=== PATIENT | male | born 1995 | race Caucasian/White ===

== ENCOUNTER 2017-12-29 14:27 | Emergency (ER) | payer OTHER | END 2017-12-29 17:13 | disposition home or self-care (01) | LOC: M ED 14:27 | DX: S33.5XXA Sprain of ligaments of lumbar spine, initial encounter (principal); R51 Headache; E11.9 Type 2 diabetes mellitus without complications; V49.40XA Driver injured in collision with unspecified motor vehicles in traffic accident, initial encounter; Y92.410 Unspecified street and highway as the place of occurrence of the external cause | CPT/HCPCS: 99283 ==

== ENCOUNTER 2018-01-26 08:18 | Inpatient (IN) | payer OTHER ==
[2018-01-26] MEDS: NS 1,000 ML IV ×5 (08:30→14:46)
[2018-01-26 08:50] LABS: ABG BASE EXCESS -27.1 (-2.0-2.0); ABG HCO3 2.1 MEQ/L (22.0-26.0); ABG O2 SATURATION 99.3 % (95.0-99.0); ABG PARTIAL PRESSURE O2 183.9 mmHg (75.0-100.0); ABG STANDARD HCO3 7.2 MEQ/L (22.0-26.0); ABG TOTAL CO2 2.4 MEQ/L (22.0-29.0)
[2018-01-26 08:55] LABS: ABG PARTIAL PRESSURE CO2 8.9 mmHg (35.0-45.0); ABG pH (ARTERIAL) 6.996 UNITS (7.350-7.450)
[2018-01-26 09:07] LABS: HEMATOCRIT 53.4 % (42.0-52.0); HEMOGLOBIN 17.2 g/dl (13.5-17.5); MEAN CORPUSCULAR HEMOGLOBIN 28.5 pg (27.0-33.0); MEAN CORPUSCULAR HGB CONC 32.2 g/dl (32.0-36.5); MEAN CORPUSCULAR VOLUME 88.6 fl (80.0-96.0); PLATELET COUNT, AUTOMATED 474 10^3/uL (150-450); RED BLOOD COUNT 6.03 10^6/uL (4.30-6.10); RED CELL DISTRIBUTION WIDTH 12.2 % (11.5-14.5); WHITE BLOOD COUNT 28.9 10^3/uL (4.0-10.0)
[2018-01-26 09:10] LABS: ADD MANUAL DIFFER YES; DIFF SLIDE NUMBER 136; POS COUNT POS FLAG; POSITIVE MORPH POS FLAG
[2018-01-26] MEDS: INSULIN HUMAN REGULAR 100 UNITS in NS 99 ML IV ×3 (09:15→21:00)
[2018-01-26] MEDS: HumuLIN R (REGULAR) INSULIN (NovoLIN R) **100U/ML** PER UNIT IV (09:15)
[2018-01-26 09:29] LABS: OSMOLALITY SERUM 335 MOSM/KG (275-295)
[2018-01-26] MEDS: PIPERACILLIN/TAZOBACTAM SOD 4.5 GM in D5W MINI-BAG PLUS 50 ML IV (09:33)
[2018-01-26 09:36] LABS: INR 1.16
[2018-01-26 09:37] LABS: PARTIAL THROMBOPLASTIN TIME 26.3 SECONDS (25.4-37.6)
[2018-01-26 09:38] LABS: ATYPICAL LYMPH 11 % (0-5); BANDS 17 % (< 11); LYMPHOCYTES 1 % (16-52); METAMYELOCYTES 3 % (0-0); MONOCYTES 5 % (0-8); NEUTROPHILS 63 % (35-75); PLATELET ESTIMATE INCREASED (NORMAL)
[2018-01-26 09:42] LABS: BEDSIDE GLUCOSE 433 MG/DL (70-105)
[2018-01-26 09:42] LABS: KETONE, URINE AUTO RFX 2+ mg/dL (NEGATIVE); LEUKOCYTE ESTERASE UR AUTO RFX NEGATIVE (NEGATIVE); MUCUS, URINE RFX SMALL (NEGATIVE); NITRITE, URINE AUTO RFX NEGATIVE (NEGATIVE); RBC, URINE AUTO RFX 1 /HPF (0-3); SPECIFIC GRAVITY UR AUTO RFX 1.022 (1.002-1.035); SQUAM EPITHELIAL CELL UR AURFX 0 /HPF (0-6); WBC, URINE AUTO RFX 2 /HPF (0-3)
[2018-01-26 09:54] LABS: ESTIMATED AVERAGE GLUCOSE 266 MG/DL (60-110); HEMOGLOBIN A1c 10.9 %
[2018-01-26 09:55] LABS: ACETONE/KETONE > 46.00 MG/DL (<2.81); ALBUMIN 5.1 GM/DL (3.2-5.2); ALBUMIN/GLOBULIN RATIO 1.06 (1.00-1.93); ALKALINE PHOSPHATASE 166 U/L (45-117); ALT/SGPT 14 U/L (12-78); ANION GAP 28 MEQ/L (8-16); AST/SGOT 8 U/L (7-37); BILIRUBIN,DIRECT 0.2 MG/DL (0.0-0.2); BILIRUBIN,TOTAL 0.8 MG/DL (0.2-1.0); BLOOD UREA NITROGEN 14 MG/DL (7-18); CALCIUM LEVEL 10.7 MG/DL (8.5-10.1); CARBON DIOXIDE LEVEL 6 MEQ/L (21-32); CHLORIDE LEVEL 98 MEQ/L (98-107); CK-MB VALUE MASS < 1.0 NG/ML (<3.6); CPK CREATINE PHOSPHOKINASE 47 U/L (39-308); GLOMERULAR FILTRATION RATE 49.6 (>60); LIPASE 56 U/L (73-393); MAGNESIUM LEVEL 2.6 MG/DL (1.8-2.4); MB/CK RELATIVE INDEX 2.13 (< OR =4); PHOSPHORUS LEVEL 6.9 MG/DL (2.5-4.9); POTASSIUM SERUM 5.5 MEQ/L (3.5-5.1); SODIUM LEVEL 132 MEQ/L (136-145); TOTAL PROTEIN 9.9 GM/DL (6.4-8.2); TROPONIN I < 0.02 NG/ML (< 0.10)
[2018-01-26 09:58] LABS: LACTIC ACID SEPSIS PROTOCOL 5.7 MMOL/L (0.4-2.0)
[2018-01-26 10:48] LABS: BEDSIDE GLUCOSE 337 MG/DL (70-105)
[2018-01-26 10:58] LABS: AMYLASE 19 U/L (25-115)
[2018-01-26 11:31] LABS: GLUCOSE, FASTING 501 MG/DL (70-100)
[2018-01-26 11:55] LABS: BEDSIDE GLUCOSE 290 MG/DL (70-105)
[2018-01-26 12:27] LABS: BEDSIDE GLUCOSE 281 MG/DL (70-105)
[2018-01-26] MEDS: D5W/0.9% SODIUM CHLORIDE 1,000 ML IV ×3 (12:42→17:39)
[2018-01-26 13:25] LABS: ANION GAP 19 MEQ/L (8-16); BLOOD UREA NITROGEN 11 MG/DL (7-18); CALCIUM LEVEL 9.1 MG/DL (8.5-10.1); CARBON DIOXIDE LEVEL 5 MEQ/L (21-32); CHLORIDE LEVEL 112 MEQ/L (98-107); CREATININE FOR GFR 1.34 MG/DL (0.70-1.30); GLOMERULAR FILTRATION RATE > 60.0 (>60); GLUCOSE, FASTING 223 MG/DL (70-100); MAGNESIUM LEVEL 2.4 MG/DL (1.8-2.4); POTASSIUM SERUM 5.4 MEQ/L (3.5-5.1); SODIUM LEVEL 136 MEQ/L (136-145)
[2018-01-26 14:02] LABS: BEDSIDE GLUCOSE 228 MG/DL (70-105)
[2018-01-26] MEDS: INSULIN IV RATE CHANGE DOCUMENTATION ML/HR XX ×2 (14:22→19:55)
[2018-01-26 15:04] LABS: BEDSIDE GLUCOSE 219 MG/DL (70-105)
[2018-01-26] MEDS: ENOXAPARIN 40 MG/0.4 ML SYRINGE (J1650) SC (15:04)
[2018-01-26] MEDS: PANTOPRAZOLE 40MG INJ (PROTONIX) (C9113) IV (15:04)
[2018-01-26] MEDS: cefTRIAXone SOD 1 GM in D5W MINI-BAG PLUS 50 ML IV (15:04)
[2018-01-26 16:11] LABS: BEDSIDE GLUCOSE 221 MG/DL (70-105)
[2018-01-26 16:47] LABS: ANION GAP 17 MEQ/L (8-16); BLOOD UREA NITROGEN 8 MG/DL (7-18); CALCIUM LEVEL 9.1 MG/DL (8.5-10.1); CARBON DIOXIDE LEVEL 10 MEQ/L (21-32); CHLORIDE LEVEL 111 MEQ/L (98-107); CREATININE FOR GFR 1.22 MG/DL (0.70-1.30); GLOMERULAR FILTRATION RATE > 60.0 (>60); GLUCOSE, FASTING 220 MG/DL (70-100); POTASSIUM SERUM 5.1 MEQ/L (3.5-5.1); SODIUM LEVEL 138 MEQ/L (136-145)
[2018-01-26 17:03] LABS: BEDSIDE GLUCOSE 248 MG/DL (70-105)
[2018-01-26 17:59] LABS: BEDSIDE GLUCOSE 270 MG/DL (70-105)
[2018-01-26 19:53] LABS: BEDSIDE GLUCOSE 308 MG/DL (70-105)
[2018-01-26 20:35] LABS: ANION GAP 13 MEQ/L (8-16); BLOOD UREA NITROGEN 6 MG/DL (7-18); CALCIUM LEVEL 8.8 MG/DL (8.5-10.1); CARBON DIOXIDE LEVEL 11 MEQ/L (21-32); CHLORIDE LEVEL 112 MEQ/L (98-107); CREATININE FOR GFR 1.09 MG/DL (0.70-1.30); GLOMERULAR FILTRATION RATE > 60.0 (>60); GLUCOSE, FASTING 322 MG/DL (70-100); POTASSIUM SERUM 3.7 MEQ/L (3.5-5.1); SODIUM LEVEL 136 MEQ/L (136-145)
[2018-01-26] MEDS: LEVEMIR (INSULIN DETEMIR) 1 UNITS/0.01ML SC (20:57)
[2018-01-26] MEDS: HumaLOG INSULIN (NovoLOG) PER UNIT SC (21:00)
[2018-01-26 21:03] LABS: BEDSIDE GLUCOSE 318 MG/DL (70-105)
[2018-01-26] MEDS: KCL 10MEQ/100ML SWI (KRUN) 10 MEQ in APPROPRIATE DILUENT 1 EA IV ×2 (21:46→23:01)
[2018-01-26 21:58] LABS: BEDSIDE GLUCOSE 311 MG/DL (70-105)
[2018-01-26] MEDS: KCL 40MEQ IN D5/0.45NS 1000ML 1,000 ML IV (22:17)
[2018-01-26 23:09] LABS: BEDSIDE GLUCOSE 252 MG/DL (70-105)
[2018-01-26] MEDS ORDERED: DEXTROSE 50% 50 ML SYRINGE IV (23:15)
[2018-01-26] MEDS ORDERED: GLUCOSE 4 GM CHEW TABLET PO (23:15)
[2018-01-26] MEDS ORDERED: GLUCAGON FOR INJ 1 MG VIAL (J1610) SC (23:15)
[2018-01-27] MEDS: KCL 10MEQ/100ML SWI (KRUN) 10 MEQ in APPROPRIATE DILUENT 1 EA IV ×3 (00:58→01:57)
[2018-01-27 01:17] LABS: ANION GAP 12 MEQ/L (8-16); BLOOD UREA NITROGEN 4 MG/DL (7-18); CALCIUM LEVEL 8.7 MG/DL (8.5-10.1); CARBON DIOXIDE LEVEL 14 MEQ/L (21-32); CHLORIDE LEVEL 110 MEQ/L (98-107); CREATININE FOR GFR 0.94 MG/DL (0.70-1.30); GLOMERULAR FILTRATION RATE > 60.0 (>60); GLUCOSE, FASTING 263 MG/DL (70-100); SODIUM LEVEL 136 MEQ/L (136-145)
[2018-01-27] MEDS: KCL 40MEQ IN D5/0.45NS 1000ML 1,000 ML IV ×3 (03:18→16:32)
[2018-01-27 04:51] LABS: BASO % 0.1 % (0.0-1.0); EOS # 0.1 10^3/uL (0.0-0.50); EOS % 0.3 % (0.0-3.0); HEMATOCRIT 38.6 % (42.0-52.0); IMMATURE GRANULOCYTE % 0.8 % (0-3.0); LYMPH # 1.4 10^3/uL (1.5-6.5); LYMPH % 9.7 % (24.0-44.0); MEAN CORPUSCULAR HEMOGLOBIN 28.3 pg (27.0-33.0); MEAN CORPUSCULAR HGB CONC 34.7 g/dl (32.0-36.5); MEAN CORPUSCULAR VOLUME 81.6 fl (80.0-96.0); MONO # 1.2 10^3/uL (0.0-0.8); MONO % 8.1 % (0.0-5.0); NEUTROPHILS # 11.9 10^3/uL (1.8-7.7); RED BLOOD COUNT 4.73 10^6/uL (4.30-6.10); RED CELL DISTRIBUTION WIDTH 12.1 % (11.5-14.5); WHITE BLOOD COUNT 14.7 10^3/uL (4.0-10.0)
[2018-01-27 05:00] LABS: HEMOGLOBIN 13.4 g/dl (13.5-17.5); PLATELET COUNT, AUTOMATED 327 10^3/uL (150-450)
[2018-01-27 05:12] LABS: ANION GAP 13 MEQ/L (8-16); BLOOD UREA NITROGEN 3 MG/DL (7-18); CALCIUM LEVEL 9.1 MG/DL (8.5-10.1); CARBON DIOXIDE LEVEL 13 MEQ/L (21-32); CHLORIDE LEVEL 108 MEQ/L (98-107); CREATININE FOR GFR 0.91 MG/DL (0.70-1.30); GLOMERULAR FILTRATION RATE > 60.0 (>60); GLUCOSE, FASTING 285 MG/DL (70-100); MAGNESIUM LEVEL 1.8 MG/DL (1.8-2.4); SODIUM LEVEL 134 MEQ/L (136-145)
[2018-01-27] MEDS: HumaLOG INSULIN (NovoLOG) PER UNIT SC ×4 (07:39→22:18)
[2018-01-27] MEDS: ENOXAPARIN 40 MG/0.4 ML SYRINGE (J1650) SC (09:21)
[2018-01-27] MEDS: PANTOPRAZOLE 40MG TAB (PROTONIX) PO (09:22)
[2018-01-27 11:45] LABS: BEDSIDE GLUCOSE 467 MG/DL (70-105)
[2018-01-27] MEDS: cefTRIAXone SOD 1 GM in D5W MINI-BAG PLUS 50 ML IV (15:02)
[2018-01-27 16:31] LABS: BEDSIDE GLUCOSE 243 MG/DL (70-105)
[2018-01-27 21:25] LABS: BEDSIDE GLUCOSE 422 MG/DL (70-105)
[2018-01-27] MEDS: LEVEMIR (INSULIN DETEMIR) 1 UNITS/0.01ML SC (22:20)
[2018-01-28] MEDS: KCL 40MEQ IN D5/0.45NS 1000ML 1,000 ML IV (01:49)
[2018-01-28 07:35] LABS: ANION GAP 9 MEQ/L (8-16); BLOOD UREA NITROGEN 5 MG/DL (7-18); CALCIUM LEVEL 9.3 MG/DL (8.5-10.1); CARBON DIOXIDE LEVEL 25 MEQ/L (21-32); CHLORIDE LEVEL 104 MEQ/L (98-107); CREATININE FOR GFR 0.62 MG/DL (0.70-1.30); GLOMERULAR FILTRATION RATE > 60.0 (>60); GLUCOSE, FASTING 238 MG/DL (70-100); MAGNESIUM LEVEL 1.9 MG/DL (1.8-2.4); POTASSIUM SERUM 3.4 MEQ/L (3.5-5.1); SODIUM LEVEL 138 MEQ/L (136-145)
[2018-01-28 07:36] LABS: BASO # 0.1 10^3/uL (0.0-0.2); BASO % 0.5 % (0.0-1.0); EOS # 0.1 10^3/uL (0.0-0.50); EOS % 1.4 % (0.0-3.0); HEMATOCRIT 37.5 % (42.0-52.0); HEMOGLOBIN 13.1 g/dl (13.5-17.5); IMMATURE GRANULOCYTE % 0.8 % (0-3.0); LYMPH # 1.8 10^3/uL (1.5-6.5); LYMPH % 19.4 % (24.0-44.0); MEAN CORPUSCULAR HEMOGLOBIN 27.9 pg (27.0-33.0); MEAN CORPUSCULAR HGB CONC 34.9 g/dl (32.0-36.5); MEAN CORPUSCULAR VOLUME 79.8 fl (80.0-96.0); MONO # 0.8 10^3/uL (0.0-0.8); MONO % 8.5 % (0.0-5.0); NEUTROPHILS # 6.3 10^3/uL (1.8-7.7); NEUTROPHILS % 69.4 % (36.0-66.0); PLATELET COUNT, AUTOMATED 324 10^3/uL (150-450); WHITE BLOOD COUNT 9.1 10^3/uL (4.0-10.0)
[2018-01-28] MEDS: HumaLOG INSULIN (NovoLOG) PER UNIT SC ×4 (08:25→21:00)
[2018-01-28] MEDS: ENOXAPARIN 40 MG/0.4 ML SYRINGE (J1650) SC (08:25)
[2018-01-28] MEDS: PANTOPRAZOLE 40MG TAB (PROTONIX) PO (08:25)
[2018-01-28] MEDS: POTASSIUM CHLORIDE 10 MEQ SR TABLET PO (10:18)
[2018-01-28 11:45] LABS: BEDSIDE GLUCOSE 226 MG/DL (70-105)
[2018-01-28] MEDS: cefTRIAXone SOD 1 GM in D5W MINI-BAG PLUS 50 ML IV (14:21)
[2018-01-28] MEDS: VANCOMYCIN HCL 1,000 MG, VIAL MATE ADAPTER 1 EACH in D5W 250 ML IV ×2 (16:11→19:46)
[2018-01-28 16:52] LABS: BEDSIDE GLUCOSE 261 MG/DL (70-105)
[2018-01-28] MEDS: LEVEMIR (INSULIN DETEMIR) 1 UNITS/0.01ML SC (21:42)
[2018-01-28 21:44] LABS: BEDSIDE GLUCOSE 235 MG/DL (70-105)
[2018-01-29] MEDS: VANCOMYCIN HCL 1,000 MG, VIAL MATE ADAPTER 1 EACH in D5W 250 ML IV ×3 (00:03→15:25)
[2018-01-29 07:10] LABS: BASO % 0.3 % (0.0-1.0); EOS # 0.2 10^3/uL (0.0-0.50); EOS % 1.7 % (0.0-3.0); HEMATOCRIT 39.1 % (42.0-52.0); HEMOGLOBIN 13.6 g/dl (13.5-17.5); IMMATURE GRANULOCYTE % 0.5 % (0-3.0); LYMPH % 23.2 % (24.0-44.0); MEAN CORPUSCULAR HEMOGLOBIN 28.6 pg (27.0-33.0); MEAN CORPUSCULAR HGB CONC 34.8 g/dl (32.0-36.5); MEAN CORPUSCULAR VOLUME 82.1 fl (80.0-96.0); MONO # 0.6 10^3/uL (0.0-0.8); MONO % 6.8 % (0.0-5.0); NEUTROPHILS # 5.9 10^3/uL (1.8-7.7); NEUTROPHILS % 67.5 % (36.0-66.0); PLATELET COUNT, AUTOMATED 352 10^3/uL (150-450); RED BLOOD COUNT 4.76 10^6/uL (4.30-6.10); RED CELL DISTRIBUTION WIDTH 12.2 % (11.5-14.5); WHITE BLOOD COUNT 8.7 10^3/uL (4.0-10.0)
[2018-01-29 07:22] LABS: ANION GAP 11 MEQ/L (8-16); BLOOD UREA NITROGEN 7 MG/DL (7-18); CALCIUM LEVEL 9.6 MG/DL (8.5-10.1); CARBON DIOXIDE LEVEL 31 MEQ/L (21-32); CHLORIDE LEVEL 102 MEQ/L (98-107); CREATININE FOR GFR 0.59 MG/DL (0.70-1.30); GLOMERULAR FILTRATION RATE > 60.0 (>60); GLUCOSE, FASTING 148 MG/DL (70-100); SODIUM LEVEL 144 MEQ/L (136-145)
[2018-01-29] MEDS: ENOXAPARIN 40 MG/0.4 ML SYRINGE (J1650) SC (08:07)
[2018-01-29] MEDS: HumaLOG INSULIN (NovoLOG) PER UNIT SC ×4 (08:48→21:00)
[2018-01-29] MEDS: POTASSIUM CHLORIDE 10 MEQ SR TABLET PO ×2 (09:30→11:56)
[2018-01-29] MEDS: KCL 10MEQ/100ML SWI (KRUN) 10 MEQ in APPROPRIATE DILUENT 1 EA IV (09:30)
[2018-01-29 10:11] LABS: BEDSIDE GLUCOSE 292 MG/DL (70-105)
[2018-01-29 11:48] LABS: BEDSIDE GLUCOSE 183 MG/DL (70-105)
[2018-01-29 12:36] LABS: ERYTHROCYTE SEDIMENTATION RATE 64 mm/hr (0-15)
[2018-01-29 13:33] LABS: HIV 1&2 SCREEN CENTAUR NEGATIVE (NEGATIVE)
[2018-01-29] MEDS: cefTRIAXone SOD 1 GM in D5W MINI-BAG PLUS 50 ML IV (14:26)
[2018-01-29 15:44] LABS: VANCOMYCIN LEVEL TROUGH 7.9 UG/ML (10.0-20.0)
[2018-01-29 17:11] LABS: BEDSIDE GLUCOSE 199 MG/DL (70-105)
[2018-01-29 21:06] LABS: BEDSIDE GLUCOSE 225 MG/DL (70-105)
[2018-01-29] MEDS: LEVEMIR (INSULIN DETEMIR) 1 UNITS/0.01ML SC (21:44)
[2018-01-30 07:38] LABS: BASO % 0.4 % (0.0-1.0); EOS # 0.3 10^3/uL (0.0-0.50); EOS % 3.1 % (0.0-3.0); HEMATOCRIT 36.9 % (42.0-52.0); HEMOGLOBIN 12.7 g/dl (13.5-17.5); IMMATURE GRANULOCYTE % 0.4 % (0-3.0); LYMPH # 1.8 10^3/uL (1.5-6.5); LYMPH % 20.8 % (24.0-44.0); MEAN CORPUSCULAR HEMOGLOBIN 28.4 pg (27.0-33.0); MEAN CORPUSCULAR HGB CONC 34.4 g/dl (32.0-36.5); MEAN CORPUSCULAR VOLUME 82.6 fl (80.0-96.0); MONO # 0.7 10^3/uL (0.0-0.8); MONO % 8.3 % (0.0-5.0); NEUTROPHILS # 5.7 10^3/uL (1.8-7.7); PLATELET COUNT, AUTOMATED 344 10^3/uL (150-450); RED BLOOD COUNT 4.47 10^6/uL (4.30-6.10); WHITE BLOOD COUNT 8.5 10^3/uL (4.0-10.0)
[2018-01-30 08:16] LABS: ANION GAP 8 MEQ/L (8-16); BLOOD UREA NITROGEN 10 MG/DL (7-18); CALCIUM LEVEL 9.2 MG/DL (8.5-10.1); CARBON DIOXIDE LEVEL 31 MEQ/L (21-32); CHLORIDE LEVEL 104 MEQ/L (98-107); CREATININE FOR GFR 0.62 MG/DL (0.70-1.30); GLOMERULAR FILTRATION RATE > 60.0 (>60); GLUCOSE, FASTING 167 MG/DL (70-100); POTASSIUM SERUM 3.7 MEQ/L (3.5-5.1); SODIUM LEVEL 143 MEQ/L (136-145)
[2018-01-30] MEDS: ENOXAPARIN 40 MG/0.4 ML SYRINGE (J1650) SC (08:52)
[2018-01-30] MEDS: HumaLOG INSULIN (NovoLOG) PER UNIT SC ×4 (08:53→21:00)
[2018-01-30 12:19] LABS: BEDSIDE GLUCOSE 201 MG/DL (70-105)
[2018-01-30 17:12] LABS: BEDSIDE GLUCOSE 259 MG/DL (70-105)
[2018-01-30] MEDS ORDERED: PROHANCE 279.3MG/ML 15ML VIAL (A9576) As Ordered (17:47)
[2018-01-30 21:25] LABS: BEDSIDE GLUCOSE 197 MG/DL (70-105)
[2018-01-30] MEDS: LEVEMIR (INSULIN DETEMIR) 1 UNITS/0.01ML SC (21:55)
[2018-01-31 07:50] LABS: BASO % 0.3 % (0.0-1.0); EOS # 0.3 10^3/uL (0.0-0.50); EOS % 3.4 % (0.0-3.0); HEMATOCRIT 35.5 % (42.0-52.0); HEMOGLOBIN 11.8 g/dl (13.5-17.5); IMMATURE GRANULOCYTE % 0.4 % (0-3.0); LYMPH % 22.3 % (24.0-44.0); MEAN CORPUSCULAR HEMOGLOBIN 28.1 pg (27.0-33.0); MEAN CORPUSCULAR HGB CONC 33.2 g/dl (32.0-36.5); MEAN CORPUSCULAR VOLUME 84.5 fl (80.0-96.0); MONO # 1.1 10^3/uL (0.0-0.8); MONO % 11.6 % (0.0-5.0); NEUTROPHILS # 5.6 10^3/uL (1.8-7.7); PLATELET COUNT, AUTOMATED 391 10^3/uL (150-450); RED CELL DISTRIBUTION WIDTH 11.9 % (11.5-14.5)
[2018-01-31 08:16] LABS: ANION GAP 8 MEQ/L (8-16); BLOOD UREA NITROGEN 12 MG/DL (7-18); C REACTIVE PROTEIN QUANTITATIV 8.07 MG/DL (0.00-0.30); CALCIUM LEVEL 8.9 MG/DL (8.5-10.1); CARBON DIOXIDE LEVEL 32 MEQ/L (21-32); CHLORIDE LEVEL 101 MEQ/L (98-107); CREATININE FOR GFR 0.68 MG/DL (0.70-1.30); GLOMERULAR FILTRATION RATE > 60.0 (>60); GLUCOSE, FASTING 168 MG/DL (70-100); POTASSIUM SERUM 3.2 MEQ/L (3.5-5.1); SODIUM LEVEL 141 MEQ/L (136-145)
[2018-01-31 08:38] LABS: ERYTHROCYTE SEDIMENTATION RATE 56 mm/hr (0-15)
[2018-01-31] MEDS: HumaLOG INSULIN (NovoLOG) PER UNIT SC ×2 (08:39→12:44)
[2018-01-31] MEDS: ENOXAPARIN 40 MG/0.4 ML SYRINGE (J1650) SC (08:39)
[2018-01-31 12:06] LABS: BEDSIDE GLUCOSE 263 MG/DL (70-105)
== END 2018-01-31 13:45 | disposition home or self-care (01) | DRG 638 ==
LOC: M PED 01-27 13:00 → M ED 08:18 → M ED INP 12:57 → M ICU 14:14
PROVIDERS: Hospitalist
DX: E10.10 Type 1 diabetes mellitus with ketoacidosis without coma (principal); R78.81 Bacteremia; Z91.14 Patient's other noncompliance with medication regimen; E87.6 Hypokalemia; E78.5 Hyperlipidemia, unspecified; B95.61 Methicillin susceptible Staphylococcus aureus infection as the cause of diseases classified elsewhere; Z79.4 Long term (current) use of insulin; Z79.899 Other long term (current) drug therapy; K21.9 Gastro-esophageal reflux disease without esophagitis

== ENCOUNTER 2018-10-21 19:38 | Inpatient (IN) | payer OTHER ==
[~2018-10-21] VITALS: Ht 190.5 cm; Wt 65.1 kg
[~2018-10-21 19:38] MED LIST: CYCL10TA PO; IBUP-1022 PO; INSUDET SC; INSUHUMDS SC; KEFL250C11 PO; LANTINJ4 SC; NOVOINJ3 SC
[2018-10-21] MEDS ORDERED: METOCLOPRAMIDE INJ 10MG/2ML VIAL (J2765) IV ONE (20:00)
[2018-10-21] MEDS ORDERED: GI COCKTAIL 50ML BTL(HYOSCYAMINE/MAALOX/LIDOCAINE VISCOUS)(1:3:1) PO ONE (20:00)
[2018-10-21] MEDS ORDERED: NS 1,000 ML IV ONE ×2 (20:00→22:30)
[2018-10-21] MEDS ORDERED: HumuLIN R (REGULAR) INSULIN (NovoLIN R) **100U/ML** PER UNIT IV ONE (20:45)
[2018-10-21 21:15] LABS: BASO # 0.1 10^3/uL (0.0-0.2); BASO % 0.3 % (0.0-1.0); EOS % 0.1 % (0.0-3.0); HEMATOCRIT 50.7 % (42.0-52.0); HEMOGLOBIN 16.8 g/dl (13.5-17.5); LYMPH # 1.1 10^3/uL (1.5-6.5); LYMPH % 6.4 % (24.0-44.0); MEAN CORPUSCULAR HEMOGLOBIN 29.4 pg (27.0-33.0); MEAN CORPUSCULAR HGB CONC 33.1 g/dl (32.0-36.5); MEAN CORPUSCULAR VOLUME 88.6 fl (80.0-96.0); MONO # 0.3 10^3/uL (0.0-0.8); MONO % 1.8 % (0.0-5.0); NEUTROPHILS # 15.7 10^3/uL (1.8-7.7); NEUTROPHILS % 90.4 % (36.0-66.0); PLATELET COUNT, AUTOMATED 325 10^3/uL (150-450); RED BLOOD COUNT 5.72 10^6/uL (4.30-6.10); WHITE BLOOD COUNT 17.4 10^3/uL (4.0-10.0)
[2018-10-21 21:53] LABS: ACETONE/KETONE > 46.00 MG/DL (<2.81); ALBUMIN 4.5 GM/DL (3.2-5.2); ALT/SGPT 16 U/L (12-78); BILIRUBIN,DIRECT 0.2 MG/DL (0.0-0.2); BILIRUBIN,TOTAL 0.7 MG/DL (0.2-1.0); BLOOD UREA NITROGEN 8 MG/DL (7-18); CALCIUM LEVEL 8.8 MG/DL (8.5-10.1); CARBON DIOXIDE LEVEL 6 MEQ/L (21-32); CHLORIDE LEVEL 110 MEQ/L (98-107); CREATININE FOR GFR 1.34 MG/DL (0.70-1.30); GLOMERULAR FILTRATION RATE > 60.0 (>60); GLUCOSE, FASTING 272 MG/DL (70-100); LIPASE 68 U/L (73-393); POTASSIUM SERUM 4.4 MEQ/L (3.5-5.1); SODIUM LEVEL 143 MEQ/L (136-145); TOTAL PROTEIN 8.6 GM/DL (6.4-8.2)
[2018-10-21] MEDS ORDERED: INSULIN IV RATE CHANGE DOCUMENTATION ML/HR XX SCH (22:00)
[2018-10-21] MEDS ORDERED: INSULIN HUMAN REGULAR 100 UNITS in NS 99 ML IV SCH (22:00)
[2018-10-21] MEDS ORDERED: D5W/0.9% SODIUM CHLORIDE 1,000 ML IV SCH (22:30)
[2018-10-21] MEDS ORDERED: SODIUM CHLORIDE IV SCH (22:40)
[2018-10-21] MEDS ORDERED: D5W IV SCH (22:40)
[2018-10-21] MEDS ORDERED: POTASSIUM CHLORIDE IV SCH (22:40)
--- NOTE | 2018-10-21 22:50 | HPEPDOC ---
[facility] Medical History & Physical Date of Admission Oct 21, 2018 Date of Service: Oct 21, 2018 History and Physical CHIEF COMPLAINT: Nausea HISTORY OF PRESENT ILLNESS: Patient is a 23-year-old male with IDDM resented to ER with complaints of nausea since 3 PM this afternoon. In ER, patient was found to have elevated blood sugar and anion gap of 27, Bicarb of 6. Patient has had previous admission for DKA. He reported some sore throat earlier today but otherwise no other symptoms including fever, chills, chest pain, SOB. No recent sick contact. He took his daily long acting insulin this morning as normal and on sliding scale short acting with meals. PAST MEDICAL HISTORY: Refer to [facility] PAST SURGICAL HISTORY: None SOCIAL HISTORY: Denies tobacco, alcohol or illicit drug use. FAMILY HISTORY: None reported ALLERGIES: Please see below. REVIEW OF SYSTEMS: 10 point review of system negative except as stated in HPI HOME MEDICATIONS: Please see below. PHYSICAL EXAMINATION: General: No acute distress, Alert Eyes: Normal sclera, EOMI, JAY JAY HENT: Atraumatic, neck supple, moist mucous membranes Cardiovascular: Normal rate, normal rhythm. No murmurs appreciated. Pulmonary: Clear to auscultation b/l, no wheezing GI: Soft, nontender, nondistended Skin: Warm and dry Neuro: CN grossly intact. No focal deficits. Strengths equal b/l. Psych: oriented x 3 LABORATORY DATA: See below. MICROBIOLOGY: Please see below. ASSESSMENT AND PLAN: 1. DKA 2/2 IDDM - Hold home regimen of insulin at this time. - Initial: AG 27, bicarb 6, BHB >46. - c/w Insulin drip. - Got 1L NS bolus in ER, to get one more. - BS <250, started on D5 drip + K. - FS q1 hour in ICU. - C/w current regimen until AG <12. BMP 14 at this time. - NPO except for sips of water. DVT ppx: SCD Code status: Full code Vital Signs Vital Signs Date Time Temp Pulse Resp B/P (MAP) Pulse Ox O2 Delivery O2 Flow Rate FiO2 10/21/18 19:49 17 10/21/18 19:43 96.6 100 121/76 (91) 99 Room Air Laboratory Data Labs 24H Laboratory Tests 2 10/21/18 20:20: Bedside Glucose (Misc Panel) 312H 10/21/18 21:08: Immature Granulocyte % (Auto) 1.0, White Blood Count 17.4H, Red Blood Count 5.72, Hemoglobin 16.8, Hematocrit 50.7, Mean Corpuscular Volume 88.6, Mean Corpuscular Hemoglobin 29.4, Mean Corpuscular Hemoglobin Concent 33.1, Red Cell Distribution Width 12.7, Platelet Count 325, Neutrophils (%) (Auto) 90.4H, Lymphocytes (%) (Auto) 6.4L, Monocytes (%) (Auto) 1.8, Eosinophils (%) (Auto) 0.1, Basophils (%) (Auto) 0.3, Neutrophils # (Auto) 15.7H, Lymphocytes # (Auto) 1.1L, Monocytes # (Auto) 0.3, Eosinophils # (Auto) 0.0, Basophils # (Auto) 0.1, Nucleated Red Blood Cells % (auto) 0.0, Anion Gap 27H, Glomerular Filtration Rate > 60.0, Calcium Level 8.8, Aspartate Amino Transf (AST/SGOT) 6L, Alanine Aminotransferase (ALT/SGPT) 16, Alkaline Phosphatase 130H, Total Bilirubin 0.7, Direct Bilirubin 0.2, Total Protein 8.6H, Albumin 4.5, Albumin/Globulin Ratio 1.10, Lipase 68L, B-Hydroxybutyrate > 46.00H 10/21/18 21:33: Bedside Glucose (Misc Panel) 266H 10/21/18 22:15: Bedside Glucose (Misc Panel) 208H CBC/BMP Laboratory Tests 10/21/18 21:08 Red Blood Count 5.72, Mean Corpuscular Volume 88.6, Mean Corpuscular Hemoglobin 29.4, Mean Corpuscular Hemoglobin Concent 33.1, Red Cell Distribution Width 12.7, Neutrophils (%) (Auto) 90.4 H, Lymphocytes (%) (Auto) 6.4 L, Monocytes (%) (Auto) 1.8, Eosinophils (%) (Auto) 0.1, Basophils (%) (Auto) 0.3, Neutrophils # (Auto) 15.7 H, Lymphocytes # (Auto) 1.1 L, Monocytes # (Auto) 0.3, Eosinophils # (Auto) 0.0, Basophils # (Auto) 0.1 Home Medications Scheduled Insulin Aspart (Novolog Flexpen) 100 Unit/Ml Inj, 1 DOSE SC ACHS Insulin Glargine,Hum.rec.anlog (Lantus Solostar) 100 Unit/Ml Inj, 28 UNITS SC DAILY Allergies Coded Allergies: No Known Allergies (Unverified , 12/16/14) A-FIB/CHADSVASC A-FIB History Current/History of A-Fib/PAF?: No JEFF HOWARD MD Oct 21, 2018 22:50
[2018-10-21 23:29] VITALS: BP 115/58
[2018-10-22] MEDS ORDERED: INSULIN HUMAN REGULAR 100 UNITS in NS 99 ML IV SCH (00:03)
[2018-10-22] MEDS: INSULIN IV RATE CHANGE DOCUMENTATION ML/HR XX SCH ×4 (01:05→05:06)
[2018-10-22] MEDS ORDERED: POTASSIUM CHLORIDE INJ 30 MEQ in D5W/0.45% SODIUM CHLORIDE 1,000 ML IV SCH (01:30)
[2018-10-22 02:08] LABS: BLOOD UREA NITROGEN 7 MG/DL (7-18); CALCIUM LEVEL 8.2 MG/DL (8.5-10.1); CARBON DIOXIDE LEVEL 15 MEQ/L (21-32); CHLORIDE LEVEL 113 MEQ/L (98-107); CREATININE FOR GFR 1.16 MG/DL (0.70-1.30); GLOMERULAR FILTRATION RATE > 60.0 (>60); GLUCOSE, FASTING 196 MG/DL (70-100); SODIUM LEVEL 142 MEQ/L (136-145)
[2018-10-22 04:00] VITALS: BP 121/72
[2018-10-22 04:25] LABS: HEMATOCRIT 39.1 % (42.0-52.0); MEAN CORPUSCULAR HEMOGLOBIN 29.5 pg (27.0-33.0); MEAN CORPUSCULAR HGB CONC 34.8 g/dl (32.0-36.5); MEAN CORPUSCULAR VOLUME 84.8 fl (80.0-96.0); PLATELET COUNT, AUTOMATED 257 10^3/uL (150-450); RED BLOOD COUNT 4.61 10^6/uL (4.30-6.10)
[2018-10-22] MEDS: CEPACOL LOZENGE PO PRN ×2 (04:26→05:04)
[2018-10-22 04:29] LABS: HEMOGLOBIN 13.6 g/dl (13.5-17.5)
[2018-10-22 04:47] LABS: BLOOD UREA NITROGEN 7 MG/DL (7-18); CALCIUM LEVEL 7.7 MG/DL (8.5-10.1); CARBON DIOXIDE LEVEL 17 MEQ/L (21-32); CHLORIDE LEVEL 115 MEQ/L (98-107); CREATININE FOR GFR 0.96 MG/DL (0.70-1.30); GLOMERULAR FILTRATION RATE > 60.0 (>60); GLUCOSE, FASTING 166 MG/DL (70-100); PHOSPHORUS LEVEL 0.8 MG/DL (2.5-4.9); POTASSIUM SERUM 3.6 MEQ/L (3.5-5.1); SODIUM LEVEL 141 MEQ/L (136-145)
[2018-10-22] MEDS ORDERED: LEVEMIR (INSULIN DETEMIR) 1 UNITS/0.01ML SC SCH (05:00)
[2018-10-22] MEDS ORDERED: GLUCAGON FOR INJ 1 MG VIAL (J1610) SC PRN (06:30)
[2018-10-22] MEDS ORDERED: GLUCOSE 4 GM CHEW TABLET PO PRN (06:30)
[2018-10-22] MEDS ORDERED: DEXTROSE 50% 50 ML SYRINGE IV PRN (06:30)
[2018-10-22 07:35] VITALS: BP 118/65
[2018-10-22] MEDS: HumaLOG INSULIN (NovoLOG) PER UNIT SC SCH ×2 (08:22→13:03)
--- NOTE | 2018-10-22 09:39 | IPNPDOC ---
Text Note Date of Service The patient was seen on 10/22/18. NOTE S: patient being seen for DKA. Insulin drip stopped 0600 per protocol as anion gap normalized, BS below 250 and bicarb level improving. Patient states rhinitis, yellow cough and sore throat. O: Vitals as below General: pleasant, NAD, AAOx3 HRRR LCTA no W/R/R Ext: no edema ABD: soft NT ND NABS HEENT: post nasal clear drainage; congested nasal turbinates A/P: 23 yo diabetic male with second episode of DKA this year. 1) DKA - resolved; transfer to [facility] - possible d/c tonight or in AM. d/c drip and start levemir/SSI 2) Diabetes type I, on senior living insulin therapy with hyperglycemia - patient normally on 26 units lantus with short acting insulin 1unit per 15 carbs and sliding scale. 3) allergic rhinitis - no active signs of infection requiring antibiotics VS,Fishbone, I+O VS, Fishbone, I+O Laboratory Tests 10/21/18 21:08 Red Blood Count 5.72, Mean Corpuscular Volume 88.6, Mean Corpuscular Hemoglobin 29.4, Mean Corpuscular Hemoglobin Concent 33.1, Red Cell Distribution Width 12.7, Neutrophils (%) (Auto) 90.4 H, Lymphocytes (%) (Auto) 6.4 L, Monocytes (%) (Auto) 1.8, Eosinophils (%) (Auto) 0.1, Basophils (%) (Auto) 0.3, Neutrophils # (Auto) 15.7 H, Lymphocytes # (Auto) 1.1 L, Monocytes # (Auto) 0.3, Eosinophils # (Auto) 0.0, Basophils # (Auto) 0.1 10/22/18 01:34 Calcium Level 8.2 L 10/22/18 04:13 Red Blood Count 4.61, Mean Corpuscular Volume 84.8, Mean Corpuscular Hemoglobin 29.5, Mean Corpuscular Hemoglobin Concent 34.8, Red Cell Distribution Width 12.6, Calcium Level 7.7 L Vital Signs Date Time Temp Pulse Resp B/P (MAP) Pulse Ox O2 Delivery O2 Flow Rate FiO2 10/22/18 07:35 99.3 97 16 118/65 (82) 97 10/21/18 19:43 Room Air I&O- Last 24 Hours up to 6 AM 10/22/18 06:00 Intake Total 4068.3 ml Balance 4068.3 ml DEEPA KIM DO Oct 22, 2018 09:39
[2018-10-22] MEDS ORDERED: HumaLOG INSULIN (NovoLOG) PER UNIT SC SCH ×2 (12:00→21:00)
[2018-10-22] MEDS ORDERED: AZIT-12 PO (14:51)
--- NOTE | 2018-10-22 18:28 | DS.PDOC ---
Discharge Summary General Date of Admission Oct 21, 2018 at 22:42 Date of Discharge 10/22/18 Attending Physician: DEEPA KIM DO Discharge Summary PROCEDURES PERFORMED DURING STAY: none ADMITTING DIAGNOSES: 1. DKA DISCHARGE DIAGNOSES: 1. DKA 2. Acute sinusitis - non specific site COMPLICATIONS/CHIEF COMPLAINT: DKA. HISTORY OF PRESENT ILLNESS:23-year-old male with IDDM resented to ER with complaints of nausea since 3 PM this afternoon. In ER, patient was found to have elevated blood sugar and anion gap of 27, Bicarb of 6. Patient has had previous admission for DKA. He reported some sore throat earlier today but otherwise no other symptoms including fever, chills, chest pain, SOB. No recent sick contact. He took his daily long acting insulin this morning as normal and on sliding scale short acting with meals. HOSPITAL COURSE: patient admitted, placed on insulin drip and was transitioned to SC and SSI. His anion gap, bicarb and acidosis improved with the correction of his blood sugars. Patient tolerated 2 meals with good blood sugar control. He had a runny note and sore throat on admission and on exam appeared to be a early onset acute sinusitis, which may have triggered his DKA episode. He was given a prescription of zithromax po for home use if the sinusitis should worsen in the next 2-3 days. DISCHARGE MEDICATIONS: Please see below. ALLERGIES: Please see below. PHYSICAL EXAMINATION ON DISCHARGE: VITAL SIGNS: Please see below. General: NAD, AAOx3 HEENT: thick yellow post nasal drip, boggy nasal turbinates Neck: no adenopathy HRRR LCTA LABORATORY DATA: Please see below. PROGNOSIS:good ACTIVITY: as tolerated DIET: carb consistent DISPOSITION: . Discharge home DISCHARGE INSTRUCTIONS: 1. continue home regimen of insulin (sliding scale, lantus and 1unit per 15mg carb) 2. follow up with PCP in 1 week to recheck blood sugars and sinusitis DISCHARGE CONDITION: stable TIME SPENT ON DISCHARGE: 35 minutes. Vital Signs/I&Os Vital Signs Date Time Temp Pulse Resp B/P (MAP) Pulse Ox O2 Delivery O2 Flow Rate FiO2 10/22/18 07:35 99.3 97 16 118/65 (82) 97 10/21/18 19:43 Room Air I&O- Last 24 Hours up to 6 AM 10/22/18 06:00 Intake Total 4068.3 ml Balance 4068.3 ml Laboratory Data Labs 24H Laboratory Tests 2 10/21/18 20:20: Bedside Glucose (Misc Panel) 312H 10/21/18 21:08: Immature Granulocyte % (Auto) 1.0, White Blood Count 17.4H, Red Blood Count 5 .72, Hemoglobin 16.8, Hematocrit 50.7, Mean Corpuscular Volume 88.6, Mean Corpuscular Hemoglobin 29.4, Mean Corpuscular Hemoglobin Concent 33.1, Red Cell Distribution Width 12.7, Platelet Count 325, Neutrophils (%) (Auto) 90.4H, Lymphocytes (%) (Auto) 6.4L, Monocytes (%) (Auto) 1.8, Eosinophils (%) (Auto) 0.1, Basophils (%) (Auto) 0.3, Neutrophils # (Auto) 15.7H, Lymphocytes # (Auto) 1.1L, Monocytes # (Auto) 0.3, Eosinophils # (Auto) 0.0, Basophils # (Auto) 0.1, Nucleated Red Blood Cells % (auto) 0.0, Anion Gap 27H, Glomerular Filtration Rate > 60.0, Calcium Level 8.8, Aspartate Amino Transf (AST/SGOT) 6L, Alanine Aminotransferase (ALT/SGPT) 16, Alkaline Phosphatase 130H, Total Bilirubin 0.7, Direct Bilirubin 0.2, Total Protein 8.6H, Albumin 4.5, Albumin/Globulin Ratio 1.10, Lipase 68L, B-Hydroxybutyrate > 46.00H 10/21/18 21:33: Bedside Glucose (Misc Panel) 266H 10/21/18 22:15: Bedside Glucose (Misc Panel) 208H 10/21/18 23:14: Bedside Glucose (Misc Panel) 229H 10/22/18 00:02: Bedside Glucose (Misc Panel) 215H 10/22/18 01:02: Bedside Glucose (Misc Panel) 186H 10/22/18 01:34: Anion Gap 14, Glomerular Filtration Rate > 60.0, Blood Urea Nitrogen 7, Creatinine 1.16, Sodium Level 142, Potassium Level 4.0, Chloride Level 113H, Carbon Dioxide Level 15L, Calcium Level 8.2L 10/22/18 01:59: Bedside Glucose (Misc Panel) 173H 10/22/18 03:02: Bedside Glucose (Misc Panel) 197H 10/22/18 04:08: Bedside Glucose (Misc Panel) 178H 10/22/18 04:13: Nucleated Red Blood Cells % (auto) 0.0, Anion Gap 9, Glomerular Filtration Rate > 60.0, Blood Urea Nitrogen 7, Creatinine 0.96, Sodium Level 141, Potassium Level 3.6, Chloride Level 115H, Carbon Dioxide Level 17L, Calcium Level 7.7L, Phosphorus Level 0.8L 10/22/18 05:03: Bedside Glucose (Misc Panel) 168H 10/22/18 06:10: Bedside Glucose (Misc Panel) 178H 10/22/18 07:34: Bedside Glucose (Misc Panel) 202H 10/22/18 12:03: Bedside Glucose (Misc Panel) 174H CBC/BMP Laboratory Tests 10/21/18 21:08 Red Blood Count 5.72, Mean Corpuscular Volume 88.6, Mean Corpuscular Hemoglobin 29.4, Mean Corpuscular Hemoglobin Concent 33.1, Red Cell Distribution Width 12.7, Neutrophils (%) (Auto) 90.4 H, Lymphocytes (%) (Auto) 6.4 L, Monocytes (%) (Auto) 1.8, Eosinophils (%) (Auto) 0.1, Basophils (%) (Auto) 0.3, Neutrophils # (Auto) 15.7 H, Lymphocytes # (Auto) 1.1 L, Monocytes # (Auto) 0.3, Eosinophils # (Auto) 0.0, Basophils # (Auto) 0.1 10/22/18 01:34 Calcium Level 8.2 L 10/22/18 04:13 Red Blood Count 4.61, Mean Corpuscular Volume 84.8, Mean Corpuscular Hemoglobin 29.5, Mean Corpuscular Hemoglobin Concent 34.8, Red Cell Distribution Width 12.6, Calcium Level 7.7 L FSBS Laboratory Tests Test 10/21/18 20:20 10/21/18 21:33 10/21/18 22:15 10/21/18 23:14 Range/Units Bedside Glucose (Misc Panel) 312 266 208 229 70-105 MG/DL Test 10/22/18 00:02 10/22/18 01:02 10/22/18 01:59 10/22/18 03:02 Range/Units Bedside Glucose (Misc Panel) 215 186 173 197 70-105 MG/DL Test 10/22/18 04:08 10/22/18 05:03 10/22/18 06:10 10/22/18 07:34 Range/Units Bedside Glucose (Misc Panel) 178 168 178 202 70-105 MG/DL Test 10/22/18 12:03 Range/Units Bedside Glucose (Misc Panel) 174 70-105 MG/DL Discharge Medications Scheduled Azithromycin (Azithromycin) 250 Mg Tablet, 1 DP PO ASDIRECTED 2 the first day followed by 1 for days 2-5 Insulin Aspart (Novolog Flexpen) 100 Unit/Ml Inj, 1 DOSE SC ACHS, (Reported) Insulin Glargine,Hum.rec.anlog (Lantus Solostar) 100 Unit/Ml Inj, 28 UNITS SC DAILY, (Reported) Allergies Coded Allergies: No Known Allergies (Unverified , 12/16/14) DEEPA KIM DO Oct 22, 2018 14:53
== END 2018-10-22 15:30 | disposition home or self-care (01) | DRG 639 ==
LOC: M ED 19:38 → M ED INP 22:42 → M ICU 23:20
PROVIDERS: ADMIT Student in an Organized Health Care Education/Training Program; ATTEND Student in an Organized Health Care Education/Training Program
DX: E10.10 Type 1 diabetes mellitus with ketoacidosis without coma (principal); J01.90 Acute sinusitis, unspecified; Z79.4 Long term (current) use of insulin; Z79.899 Other long term (current) drug therapy